=== PATIENT | female | born 1975 | race Two or more races ===

== ENCOUNTER → 2017-04-01 | Outpatient (CLI) | payer OTHER ==
[2015-07-27 15:30] VITALS: BP 92/68
[~2017-04-01] MED LIST: Oxycodone Hcl/Acetaminophen PO; PANT40TA3 PO
--- NOTE | 2017-04-01 14:08 | RAD ---
DATE: 04/11/17 EXAM: DIGITAL DIAGNOSTIC RT, BREAST RIGHT HISTORY: 6 months follow-up COMPARISON: Diagnostic right mammogram from 06/27/16 and bilateral screening mammograms from 06/05/16. This study was interpreted with the benefit of Computerized Aided Detection (CAD). TECHNIQUE: CC and MLO views of the right breast. Targeted ultrasound evaluation of the right upper outer breast. FINDINGS: Diagnostic right mammogram: CC and MLO views of the right breast are obtained. Breast tissue density is C , heterogeneously dense breast parenchyma, this reduces the sensitivity of mammograms . Previously seen nodule in the right upper breast appears somewhat larger. A second nodule was previously seen, this is no longer visualized. Coarse benign-appearing calcifications are redemonstrated. Ultrasound to follow Right breast ultrasound discussion: Targeted sonographic evaluation of the right upper outer breast is performed and images are obtained. There is a well-defined cyst measuring 0.8 x 0.9 x 0.5 cm at 9:00 position, 4 cm from the nipple. There is a somewhat lobulated cyst measuring 1.1 x 0.8 x 0.5 cm at 12:00 position, 3 cm from the nipple. Previously seen additional cysts and lymph nodes are no longer visualized. IMPRESSION: Nodule in the right upper outer breast appears somewhat larger. 2 benign appearing cysts are present at 9 and 12:00 position. Additional cyst or lymph node seen previously in the lower visualized. The findings are benign. 6 months follow-up bilateral mammogram would place the patient on routine annual schedule. BI-RADS CATEGORY: 2 BENIGN FINDING(S) RECOMMENDED FOLLOW-UP: 6M 6 MONTH FOLLOW-UP PQRS compliance statement: Patient information was entered into a reminder system with a target due date for the next mammogram. Mammography is a sensitive method for finding small breast cancers, but it does not detect them all and is not a substitute for careful clinical examination. A negative mammogram does not negate a clinically suspicious finding and should not result in delay in biopsying a clinically suspicious abnormality. "Our facility is accredited by the [employer] Mammography [employer]."
== END | disposition home or self-care (01) ==
LOC: MAMMO 13:29
PROVIDERS: ATTEND Family Medicine
DX: N63 Unspecified lump in breast (principal)
CPT/HCPCS: 76641; G0206; 77065

== ENCOUNTER → 2017-09-14 | Outpatient (CLI) | payer OTHER ==
[2015-07-27 15:30] VITALS: BP 92/68
--- NOTE | 2017-09-14 17:52 | RAD ---
INDICATION: Pelvic mass and pain COMPARISON: CT from 07/23/2015 TECHNIQUE: Grayscale and color ultrasound images uterus and adnexa. FINDINGS: Uterus: 11.9 x 8.4 x 5.3 cm. Endometrial Stripe: 17 mm on right and 16 mm on the left. Right Ovary: 3.4 x 2.8 x 2.4 cm. Flow Identified. Left Ovary: 2.9 x 2.5 x 2.3 cm. Flow Identified. Adjacent to the fundus of the uterus there is a hypoechoic masslike structure measuring up to about 48 x 47 mm. There may be a component that extends into the adjacent myometrium although its possible that this is secondary to an additional mass within the area. IMPRESSION: 1. Hypoechoic masslike structure seen adjacent to the fundus of the uterus. Could be secondary to causes such as a exophytic fibroid but other more worrisome causes of a pelvic mass not excluded. A follow-up pelvic MRI may be helpful to further evaluate. 2. There is also heterogenous region within the adjacent myometrium. This may be a component of the above-described mass or secondary to an additional mass within the myometrium with fibroid being the most common cause but can be further evaluated on MRI as well. 3. There are 2 endometrial stripes near the fundus which can be seen with a mullerian ductal anomaly.
--- NOTE | 2017-09-14 17:58 | RAD ---
INDICATION: Abdominal pain. COMPARISON: None. TECHNIQUE: Grayscale and color ultrasound images obtained through the abdomen. FINDINGS: Aorta/IVC: Unremarkable in visualized portion. Part of the aorta is not seen. Pancreas: Poorly seen Liver: Borderline echogenic Gallbladder: Postcholecystectomy Common Bile Duct: Not dilated Right Kidney: No hydronephrosis. Left Kidney: No hydronephrosis. Spleen: Unremarkable. IMPRESSION: Postcholecystectomy without definite bile duct dilation. Liver is borderline echogenic. This is a borderline finding but mild fatty infiltration is not excluded.
== END | disposition home or self-care (01) ==
LOC: US 13:32
PROVIDERS: ATTEND Family Medicine
DX: R19.00 Intra-abdominal and pelvic swelling, mass and lump, unspecified site (principal)
CPT/HCPCS: 76700; 76856

== ENCOUNTER → 2017-09-30 | Outpatient (CLI) | payer OTHER ==
[2015-07-27 15:30] VITALS: BP 92/68
[~2017-09-30] MED LIST changes: +GADOBUTROL 7.5 MMOL/7.5 ML VIAL IV ONE
--- NOTE | 2017-09-30 17:18 | RAD ---
MRI study of the pelvis with and without contrast History: Pelvic mass. Abdominal pain. Technique: Pre and postcontrast enhanced MRI sequences of the pelvis were performed. A total of 5 cc of Gadavist was given intravenously. Findings: Uterus is anteverted in position. The uterus is enlarged due to multiple uterine fibroids. There is a large fibroid involving the fundus of the uterus anteriorly measuring 5.5 cm. There is another fibroid seen involving the central fundus measuring 2.2 cm. There is a another serosal fibroid involving the posterior mid body measuring 1.9 cm. Lower uterine body fibroids of the uterus are seen just above the cervix. One is located anteriorly measuring 1.9 cm and one is located posteriorly measuring 1.6 cm. A septated uterus is seen with 2 separate endometrial canal horns. The endometrial canal measures 8 mm in greatest thickness. There is diffuse thickening of the junctional zone of the body of the uterus measuring up to 11 mm in thickness. This may be seen with adenomyosis. Nabothian cysts of the cervix are seen. No cervical mass is evident. The vaginal vault and vulva are unremarkable. There is a nodule of the right ovary. The right ovary is located posteriorly in the cul-de-sac. This nodule is low signal on T2-weighted images and high signal on noncontrast T1-weighted images. Therefore, this may represent a hemorrhagic cyst. It measures 2.8 centimeters in greatest dimension. Enhancement is difficult to evaluate due to the increased signal on the noncontrast T1-weighted images. It appears homogeneous however. The left ovary is unremarkable. There is small amount of physiologic free fluid within the cul-de-sac. The urinary bladder wall is smooth. No pelvic lymphadenopathy is evident. No marrow infiltrative process is seen. IMPRESSION: Uterine fibroids. Diffuse thickening of the junctional zone which may be seen with adenomyosis. 2.8 cm hemorrhagic cyst of the right ovary.
== END | disposition home or self-care (01) ==
LOC: MRI 15:13
PROVIDERS: ATTEND Family Medicine
DX: R19.00 Intra-abdominal and pelvic swelling, mass and lump, unspecified site (principal); D25.9 Leiomyoma of uterus, unspecified; N83.201 Unspecified ovarian cyst, right side
CPT/HCPCS: 72197; A9585

== ENCOUNTER → 2018-02-10 | Outpatient (CLI) | payer OTHER ==
[2018-02-10] MEDS: IOHEXOL 240 MG/ML 50ML VIAL. PO (10:38)
[2018-02-10] MEDS: IOHEXOL 300 MG/ML 100ML VIAL. IV (10:38)
== END | disposition home or self-care (01) ==
LOC: KCIC CT 09:22
DX: R10.2 Pelvic and perineal pain (principal); R91.1 Solitary pulmonary nodule; Z90.710 Acquired absence of both cervix and uterus
CPT/HCPCS: 74177; Q9966; Q9967

== ENCOUNTER → 2019-10-04 | Outpatient (CLI) | payer OTHER ==
[2015-07-27 15:30] VITALS: BP 92/68
[~2019-10-04] MED LIST changes: -GADOBUTROL 7.5 MMOL/7.5 ML VIAL IV ONE; -PANT40TA3 PO; +PANT40TA77 PO
--- NOTE | 2019-10-05 08:12 | RAD ---
DATE: 10/04/2019 EXAM: DIGITAL SCREEN BILAT W/CAD HISTORY: Routine screening COMPARISON: 06/05/2016, 09/25/2017 mammographic exams This study was interpreted with the benefit of Computerized Aided Detection (CAD). Breast Density: DENSE The breast parenchyma is dense, which could reduce the sensitivity of mammography. Breast parenchyma level density D. FINDINGS: No suspicious calcifications or distortion. There is a new mass at the right outer breast approximately 5.6 cm from the nipple and measures up to 1.1 cm in diameter. It is well-circumscribed. Asymmetry involving the left anterior retroareolar region is evident with increased density in the interval. This is primarily seen on the CC projection. IMPRESSION: New mass at the right upper-outer breast. Asymmetry involving the left anterior retroareolar region. BI-RADS CATEGORY: 0 INCOMPLETE: NEEDS ADDITIONAL IMAGING EVALUATION AND/OR PRIOR MAMMOGRAMS FOR COMPARISON. RECOMMENDED FOLLOW-UP: ADD ADDITIONAL IMAGING. Spot compression imaging of the left retroareolar region recommended. Ultrasound imaging of the right outer breast in the 9:00 region posteriorly is recommended. Ultrasound may be needed at the left retroareolar region. PQRS compliance statement: Patient information was entered into a reminder system with a target due date for the next mammogram. Mammography is a sensitive method for finding small breast cancers, but it does not detect them all and is not a substitute for careful clinical examination. A negative mammogram does not negate a clinically suspicious finding and should not result in delay in biopsying a clinically suspicious abnormality. "Our facility is accredited by the [employer] Mammography [employer]."
== END | disposition home or self-care (01) ==
LOC: MAMMO 13:49
PROVIDERS: ATTEND Family Medicine
DX: Z12.31 Encounter for screening mammogram for malignant neoplasm of breast (principal); N63.11 Unspecified lump in the right breast, upper outer quadrant; N64.89 Other specified disorders of breast
CPT/HCPCS: 77067

== ENCOUNTER 2019-10-25 12:16 | Emergency (ER) | payer OTHER ==
[~2019-10-25] VITALS: Ht 152.4 cm; Wt 61.2 kg
[2019-10-25] MEDS ORDERED: KETOROLAC 30 MG/ML VIAL. IM STA (12:41)
[2019-10-25] MEDS ORDERED: ORPHENADRINE CITRATE 60 MG/2 ML VIAL. IM STA (12:41)
[2019-10-25 12:43] VITALS: BP 130/80
[2019-10-25] MEDS ORDERED: IBUP-1027 PO (12:50)
[2019-10-25] MEDS ORDERED: ORPH100T PO (12:50)
--- NOTE | 2019-10-25 12:51 | PHYS DOC ---
Past Medical History Past Medical History: No Pertinent History Past Surgical History: No Surgical History Alcohol Use: Occasionally Drug Use: None Adult General Chief Complaint Chief Complaint: BACK INJURY HPI HPI Patient is a 44 year old female who presents with right lower back pain that radiates down her right leg. This started around 10 AM. The patient was at work and crouched down and was picking up a blanket and started having the pain. The patient rates her pain is 10 out of 10 in severity and sharp. Not taken any medicine so far. Review of Systems Review of Systems Constitutional: Denies fever or chills [] Eyes: Denies change in visual acuity, redness, or eye pain [] HENT: Denies nasal congestion or sore throat [] Respiratory: Denies cough or shortness of breath [] Cardiovascular: No additional information not addressed in HPI [] GI: Denies abdominal pain, nausea, vomiting, bloody stools or diarrhea [] : Denies dysuria or hematuria [] Musculoskeletal: Reports back pain. Integument: Denies rash or skin lesions [] Neurologic: Denies headache, focal weakness or sensory changes [] Endocrine: Denies polyuria or polydipsia [] Complete systems were reviewed and found to be within normal limits, except as documented in this note. Allergies Allergies Allergies Coded Allergies Type Severity Reaction Last Updated Verified No Known Drug Allergies 07/23/15 No Physical Exam Physical Exam Constitutional: Well developed, well nourished, no acute distress, non-toxic appearance. [] HENT: Normocephalic, atraumatic, bilateral external ears normal, oropharynx moist, no oral exudates, nose normal. [] Eyes: PERRLA, EOMI, conjunctiva normal, no discharge. [] Neck: Normal range of motion, no tenderness, supple, no stridor. [] Skin: Warm, dry, no erythema, no rash. [] Back: Tenderness to R side of back, midline lumbar tenderness. Extremities: No tenderness, no cyanosis, no clubbing, ROM intact, no edema. [] Neurologic: Alert and oriented X 3, normal motor function, normal sensory function, no focal deficits noted. [] Psychologic: Affect normal, judgement normal, mood normal. [] EKG EKG [] Radiology/Procedures Radiology/Procedures [] Course & Med Decision Making Course & Med Decision Making Pertinent Labs and Imaging studies reviewed. (See chart for details) Appears to be sciatic back pain. Will give Toradol and Norflex. Will d/c home to follow up with work comp doctor. Allan Disclaimer Allan Disclaimer This electronic medical record was generated, in whole or in part, using a voice recognition dictation system. Departure Departure Impression: Primary Impression: Sciatica of right side Disposition: HOME, SELF-CARE Condition: STABLE Referrals: MANUEL BUSTILLOS MD (PCP) Patient Instructions: Sciatica Additional Instructions: Thank you for visiting [facility]. We appreciate you trusting us with your care. If any additional problems come up don't hesitate to return to visit us. Please follow up with your primary care provider so they can plan additional care if needed and know about the problem that you had. If symptoms worsen come back to the Emergency Department. Any concerning symptoms that start such as chest pain, shortness of air, weakness or numbness on one side of the body, running high fevers or any other concerning symptoms return to the ER. Please fill your medications at any pharmacy and follow the prescription instructions. As we discussed can use heat after 24 hours. Can also try foam roller to roll out muscles. Scripts Orphenadrine Citrate (ORPHENADRINE CITRATE) 100 Mg Tablet.er 100 MG PO HS PRN for MUSCLE PAIN for 5 Days, #5 TAB.SR Prov: GARCÍA DURBIN APRN 10/25/19 Ibuprofen (IBUPROFEN) 400 Mg Tablet 400 MG PO PRN Q6HRS PRN for INFLAMMATION for 5 Days, #20 TAB Prov: GARCÍA DURBIN APRN 10/25/19 GARCÍA DURBIN APRN Oct 25, 2019 12:51
== END 2019-10-25 13:03 | disposition home or self-care (01) ==
LOC: ER 12:16
DX: M54.41 Lumbago with sciatica, right side (principal)
CPT/HCPCS: 96372; 99284; J1885; J2360

== ENCOUNTER → 2019-11-02 | Outpatient (CLI) | payer OTHER ==
[2019-10-25 12:43] VITALS: BP 130/80
[~2019-11-02] MED LIST changes: +IBUP-1027 PO; +ORPH100T PO
--- NOTE | 2019-11-03 12:16 | RAD ---
DATE: 11/02/2019 EXAM: DIGITAL DIAGNOSTIC LT, BREAST BILATERAL HISTORY: Abnormal mammogram COMPARISON: 10/04/2019 screen mammographic exam This study was interpreted with the benefit of Computerized Aided Detection (CAD). Breast Density: DENSE The breast parenchyma is dense, which could reduce the sensitivity of mammography. Breast parenchyma level density D. FINDINGS: Spot compression imaging of the left breast and subareolar MLO and CC projection was performed. Persistence of focal asymmetries noted. Limited bilateral breast ultrasound exam was performed. At the left breast 12:00 region, there is a 1.7 cm by 1.7 cm x 1.4 cm cyst. Adjacent smaller cyst is present. Multiple smaller cysts are present about the left breast in the subareolar region. Cluster of smaller cysts in particular is present at the 12:00 region about a 0.8 cm diameter cyst. Right breast lymph node 10 cm from nipple is present measuring up to 0.9 cm diameter. At the right breast 5 cm from the nipple at the 8:00 region, there is a 1.3 cm diameter simple cyst. The 12:00 region 3 cm from the nipple there is a 1 cm diameter cyst. At the 9:00 region 4 cm from nipple, there is another simple cyst measuring up to 0.9 cm. IMPRESSION: Cluster of cysts involving the left breast 12:00 region. Multiple other cysts are present bilaterally. BI-RADS CATEGORY: 3 PROBABLY BENIGN FINDING(S)-SHORT INTERVAL FOLLOW-UP SUGGESTED RECOMMENDED FOLLOW-UP: 6M 6 MONTH FOLLOW-UP. Six-month follow-up left mammographic exam and left breast is recommended. Ultrasound examination of the left breast in 6 months is recommended also to assess stability. PQRS compliance statement: Patient information was entered into a reminder system with a target due date for the next mammogram. Mammography is a sensitive method for finding small breast cancers, but it does not detect them all and is not a substitute for careful clinical examination. A negative mammogram does not negate a clinically suspicious finding and should not result in delay in biopsying a clinically suspicious abnormality. "Our facility is accredited by the [employer] Mammography [employer]."
== END | disposition home or self-care (01) ==
LOC: MAMMO 13:53
PROVIDERS: ATTEND Family Medicine
DX: N60.02 Solitary cyst of left breast (principal); N60.01 Solitary cyst of right breast
CPT/HCPCS: 76641; 77065

== ENCOUNTER → 2021-04-29 | Outpatient (CLI) | payer OTHER ==
--- NOTE | 2021-04-29 14:16 | RAD ---
EXAM: 1. BILATERAL DIGITAL DIAGNOSTIC MAMMOGRAPHY. 2. LEFT BREAST ULTRASOUND. HISTORY: Follow-up of the left breast lesion was requested in 2019. Palpable focus on left. TECHNIQUE: Bilateral full field digital images were obtained in CC and MLO projections. Computer-aide d detection was applied. Sonography of the left breast was also performed. COMPARISON: 10/04/2019, 11/02/2019. COMPOSITION: D. The breasts are extremely dense, which lowers the sensitivity of mammography. FINDINGS: A skin marker is placed slightly superomedial to the left nipple at the site of palpable co ncern. Underlying this, multiple obscured masses correspond with simple cysts sonographically. The la rgest cyst at the 12:00 position 2 cm from the nipple corresponds with the prior region of sonographi c concern, and measures 1.4 x 1.2 cm. There is no suspicious sonographic finding. Some of the left cy sts have decreased in size since the prior study. Images of the left axilla reveal no pathologic-appe aring lymph nodes. Scattered calcifications bilaterally appear stable and benign. Some obscured masses on the right have decreased in size, likely representing involuting cysts. There are no suspicious masses, microcalcif ications or architectural distortion. BI-RADS CATEGORY 2: Benign. RECOMMENDATION: 1. Recommend ongoing clinical follow-up of palpable foci. 2. Routine screening mammography in one year. If mammography demonstrates dense breast tissue (heterogenously dense or extremely dense, category C or D), which could hide abnormalities, and if other risk factors for breast cancer have been identifi ed, supplemental screening tests that may be suggested by the ordering physician may be of benefit. D ense breast tissue, in and of itself, is a relatively common condition. Therefore, this information i s not provided to cause undue concern, but rather to raise awareness and to promote discussion with t he referring physician regarding the presence of other risk factors, in addition to dense breast tiss ue. The results of this mammography examination is provided to the patient and referring physician. T he patient should contact their referring physician if any questions or concerns exist regarding this report. PQRS compliance statement - Patient information was entered into a reminder system with a target due date for the next mammogram. "Our facility is accredited by the [employer] Mammography [employer]." Electronically signed by: Keyon Collazo MD (04/29/2021 2:14 PM) [id number]
== END ==
LOC: MAMMO 13:44
PROVIDERS: ATTEND Family Medicine
DX: N60.01 Solitary cyst of right breast (principal); N60.02 Solitary cyst of left breast
CPT/HCPCS: 76641; 77066